=== PATIENT | female | born 1955 | race Caucasian/White ===

== ENCOUNTER → 2023-05-09 09:01 | Outpatient (REF) | payer MEDICARE, OTHER, SELFPAY ==
[2023-05-09 09:58] LABS: ALT (SGPT) 40 U/L (0-35); AST (SGOT) 32 U/L (14-36); Albumin 3.9 g/dl (3.5-5.0); Alkaline Phosphatase 78 U/L (38-126); Blood Urea Nitrogen 14 mg/dl (7-17); Carbon Dioxide 28 mmol/L (22-30); Chloride 106 mmol/L (98-107); Glucose 97 mg/dl (70-99); Potassium 4.4 mmol/L (3.5-5.1); Sodium 137 mmol/L (135-145); Total Bilirubin 0.2 mg/dl (0.2-1.3); Total Protein 6.6 g/dl (6.3-8.2); eGFR > 60.00
== END ==
LOC: REG 09:01
PROVIDERS: ATTENDING PHYSICIAN Nurse Practitioner
DX: R14.0 Abdominal distension (gaseous) (principal)
CPT/HCPCS: 36415; 80053

== ENCOUNTER → 2023-05-11 08:42 | Outpatient (REF) | payer MEDICARE, OTHER, SELFPAY | LOC: HWRAD 08:42 | PROVIDERS: ATTENDING PHYSICIAN Nurse Practitioner | DX: R14.0 Abdominal distension (gaseous) (principal) | CPT/HCPCS: 74177; Q9967 ==

== ENCOUNTER → 2023-06-13 11:43 | Outpatient (REF) | payer MEDICARE, OTHER, SELFPAY | LOC: RAD 11:43 | PROVIDERS: ATTENDING PHYSICIAN Nurse Practitioner | DX: U09.9 Post COVID-19 condition, unspecified (principal) | CPT/HCPCS: 71046 ==

== ENCOUNTER → 2023-06-22 13:49 | Outpatient (REF) | payer MEDICARE, OTHER, SELFPAY | LOC: RCS 13:49 | PROVIDERS: ATTENDING PHYSICIAN Internal Medicine Cardiovascular Disease; FAMILY PHYSICIAN Internal Medicine | DX: R07.89 Other chest pain (principal) | CPT/HCPCS: 93017; 93350 ==

== ENCOUNTER → 2023-06-28 14:17 | Outpatient (REF) | payer MEDICARE, OTHER, SELFPAY | LOC: RCS 14:17 | PROVIDERS: ATTENDING PHYSICIAN Internal Medicine Cardiovascular Disease; FAMILY PHYSICIAN Internal Medicine | DX: J43.9 Emphysema, unspecified (principal); I10 Essential (primary) hypertension; R07.89 Other chest pain; I25.10 Atherosclerotic heart disease of native coronary artery without angina pectoris | CPT/HCPCS: 93306 ==

== ENCOUNTER 2023-07-04 06:15 | Day surgery (SDC) | payer MEDICARE, OTHER, SELFPAY ==
--- NOTE | 2023-07-01 09:49 | HPS.HSE ---
Family Physician
-
Family Physician: INTERVIEWE UNKNOWN - PT NOT
Chief Complaint
-
Abnormal stress echocardiogram. Chest pain.
History of Present Illness
The patient is a 68 year old female presenting today for recent chest pain. The patient reports several episodes of chest discomfort which she describes as 'someone sitting on my chest' while talking with her sister. Her most recent
episode was 06/30/2023. She does not recall these conversations being particularly stressful. She does note shortness of breath and increased fatigue with these episodes. She states that her episodes are becoming more frequent and are progressively
worsening. She does have numerous risk factors for obstructive coronary artery disease, which include a strong family history of early onset cardiovascular disease, the presence of a calcified, ectatic infrarenal abdominal aorta, and a history of
prior tobacco abuse with severe hyperlipidemia. A stress echocardiogram was ordered on 06/22/2023 and revealed inferoseptal base to mid ventricle and possibly inferior (RCA territory) wall motion abnormalities at peak stress with a below average
exercise tolerance. Given this, she will undergo a left cardiac catheterization for further chest pain evaluation. She denies any current complaints today such as shortness of breath at rest, palpitations, nausea, vomiting, diarrhea,
lightheadedness, dizziness, cough, sore throat, or fever.
Medical History
Past Medical History
Past Medical History: Reports Other
Additional Past Medical History:
1. Chest pain with abnormal stress echocardiogram.
2. Hypertension.
3. Hyperlipidemia.
4. Calcified, ectatic infrarenal abdominal aorta.
5. Abdominal aortic aneurysm.
6. Right upper lobe pulmonary nodule.
7. Emphysema.
8. Obstructive sleep apnea, complaint with dental appliance.
9. Chronic gastritis
10. Hiatal hernia.
11. Colon polyps.
12. Diverticulosis.
13. Irritable bowel syndrome.
14. Nephrolithiasis, non-obstructive.
15. Hepatic steatosis.
16. Isolated seizure, 2016, possibly due to severe dehydration.
17. Multilevel degenerative disc disease.
18. Lumbar stenosis.
19. Rheumatoid arthritis.
20. Basal cell carcinoma, status post excision.
21. Chronic anemia.
22. Osteopenia.
23. Anxiety.
24. Depression.
25. Recurrent COVID-19 infection, last 06/01/2023, with residual cough.
26. Mild hyponatremia.
27. History of tobacco abuse.
Past Surgical History: Reports Other
Additional Past Surgical History:
1. .
2. Hysteroscopy and D&C.
3. Tonsillectomy.
4. Colonoscopy x2.
5. Endoscopy x2.
Social History
Tobacco: Former Smoker (Former 2 pack per day cigarette smoker who stopped tobacco altogether in 2011. )
Alcohol: None
Living: Alone (in a 1 story home.)
Family History
Family History: Not pertinent
Allergies / Home Medications
Allergy/Medication List:
Home medications:
1. Albuterol sulfate 1 puff inhaled every 4 hours as needed.
2. Amlodipine 5 mg p.o. daily.
3. Aspirin 81 mg p.o. daily.
4. Atorvastatin 40 mg p.o. at bedtime.
5. Carvedilol 6.25 mg p.o. at bedtime.
6. Atrovent 2 sprays intranasal daily as needed.
7. Prednisone 1 mg p.o. daily.
8. Rinvoq 15 mg p.o. daily - on hold per shovel logger at of 06/29/2023.
9. Omeprazole 20 mg p.o. daily as needed.
10. Famotidine 20 mg p.o. twice a day.
Allergies: No known allergies.
Review of Systems
-
A 12 point ROS was completed and negative except as noted: Yes
Physical Exam
Vital Signs
Blood pressure 135/72. Heart rate 80. Respirations 18. Pulse ox 98% on room air.
Height 5 feet, 6 inches. Weight 76.8 kg. BMI 27.3.
Physical Exam
General: Well Developed, Well Nourished and No Apparent Distress
HEENT: NormoCephalic, Moist mucous membranes, Atraumatic and PERRLA
Respiratory: Clear
Cardiac: Regular Rhythm
GI: Soft, Non Tender and Non Distended
Musculoskeletal: Normal Gait & Station
Skin: Warm and Dry
Neuro: AO x 3 and Nonfocal/grossly intact
Laboratory Results
-
DIAGNOSTIC STUDIES as of 07/01/2023: White blood cell count 7.0. Hemoglobin 10.7. Platelet count 355,000. Sodium 134. Potassium 4.1. BUN 12. Creatinine 0.9. Glucose 109. Calcium 9.5. AST 26. ALT 20. Albumin 4.1
EKG 07/01/2023: Normal sinus rhythm.
Echocardiogram 06/28/2023: Normal biventricular size and systolic function without regional wall motion abnormality. No significant valvular disease. Estimated PASP 31 mmHg and estimated RA 8 mmHg. No significant change since the prior study of
07/18/2020.
Stress echocardiogram 06/22/2023: Abnormal stress echocardiogram. Inferoseptal base to mid ventricle and possibly inferior (RCA territory) wall motion abnormalities at peak stress. Below average exercise tolerance, achieving 6.5 METS and 153 bpm of
max predicted heart rate. Moderate risk stress test.
Impression/Plan
-
IMPRESSION/PLAN:
1. Abnormal stress echocardiogram and chest pain: The patient is in need of a left cardiac catheterization with Dr. Nick Marina on 07/04/2023. The benefits and risks of the procedure have been explained to the patient. The patient understands these
risks and wishes to proceed. She is aware to continue her baby Aspirin daily up to and including the day of her procedure.
[2023-07-01 10:30] VITALS: BMI 27.3
[2023-07-04] VITALS (10 sets, daily range): BP systolic 107–127; BP diastolic 69–85; BMI 27.5
[2023-07-04] MEDS: NSS 231 ML IV (07:02)
--- NOTE | 2023-07-04 08:11 | ITS.CL.CATH ---
Director Of Group Sales - Catheterization
Cardiac Catheterization
Procedure Report:
CARDIAC CATHETERIZATION REPORT
Date of Procedure: 07/04/2023
Referring: Nick Marina D.O.
INDICATION: Chest pressure, multiple coronary artery disease risk factors, abnormal stress test.
PROCEDURE:
1. Left heart catheterization.
2. Coronary angiography.
ACCESS:
6 Jordanian right radial artery.
CATHETERS:
1. 5 Jordanian JR4.
2. 5 Jordanian JL 3.5.
HEMODYNAMIC DATA
Weight (kg): 77.1
AO (s/d/x, mmHg): 99/62/79
LV (s/x mmHg):
LEFT VENTRICULOGRAPHY: Not performed.
CORONARY ANGIOGRAPHY
Dominance: Right.
Left Main: Large size, bifurcating vessel. There is no coronary artery disease.
LAD: Normal size vessel giving rise to 2 diagonals. There are minor luminal irregularities. The distal LAD is severely tortuous.
Ramus: Congenitally absent.
Circumflex: Large size, nondominant vessel giving rise to 4 obtuse marginals before terminating as a small left posterolateral branch. There is no coronary artery disease. All of the obtuse marginals are severely tortuous.
RCA: Normal size, dominant vessel. There is a 20% lesion in the mid vessel. The distal RPDA is severely tortuous.
INTERVENTION(S)
None.
Closure Device: Vascular band.
Radiation (mGy): 264.93
DAP (cm2.Gy): 22.8740
Fluoroscopy time (minutes): 2.0
Sedation time (minutes): 29
CONCLUSIONS
1. Right dominant circulation with a 20% lesion in the mid RCA, luminal irregularities in the LAD and severe tortuosity of the distal vessels consistent with hypertensive heart disease.
2. Normal filling pressures (LVEDP = 11 mmHg at 77.1 kg).
RECOMMENDATIONS:
1. Expectant management after cardiac catheterization via right radial approach.
2. Limited weight bearing on the right wrist for one week.
3. Continue primary prevention given her numerous risk factors.
4. Smoking cessation recommended.
5. Outpatient referral for pulmonary function testing.
6. Start pantoprazole 40 mg daily for possible GERD/esophageal spasm.
Copy to: Najma Buckner M.D.
Nick Marina DO, FACC, FACP
--- NOTE | 2023-07-04 08:39 | PTCARENOTE ---
@ 0839 patient had 12 beat run of VTach, which broke on its own without intervention. Patient stated she felt ' fluttering ' in her chest which was uncomfortable. RN notified Dr. Nick Marina and Halle MIDDLETON. STAT Labs were ordered/drawn. Will
continue to monitor and notify MD of any changes.
[2023-07-04 09:43] LABS: Blood Urea Nitrogen 13 mg/dl (7-17); Calcium 9.2 mg/dl (8.4-10.2); Carbon Dioxide 21 mmol/L (22-30); Chloride 107 mmol/L (98-107); Estimated Creatinine Clearance 82 ml/min; Glucose 162 mg/dl (70-99); Phosphorus 3.7 mg/dl (2.5-4.5); Potassium 3.9 mmol/L (3.5-5.1); Sodium 136 mmol/L (135-145); eGFR > 60.00
== END 2023-07-04 11:30 | disposition home or self-care (01) ==
LOC: CATH 06:15
PROVIDERS: Nurse Practitioner; ATTENDING PHYSICIAN Internal Medicine Cardiovascular Disease; FAMILY PHYSICIAN Internal Medicine
DX: I25.10 Atherosclerotic heart disease of native coronary artery without angina pectoris (principal); R07.9 Chest pain, unspecified; I10 Essential (primary) hypertension; E78.5 Hyperlipidemia, unspecified; I71.40 Abdominal aortic aneurysm, without rupture, unspecified; G47.33 Obstructive sleep apnea (adult) (pediatric); J43.9 Emphysema, unspecified; K58.9 Irritable bowel syndrome, unspecified; M06.9 Rheumatoid arthritis, unspecified; Z87.891 Personal history of nicotine dependence; Z85.828 Personal history of other malignant neoplasm of skin; Z79.82 Long term (current) use of aspirin
CPT/HCPCS: 80048; 83735; 84100; 93458; C1894; Q9967

== ENCOUNTER → 2023-11-10 13:06 | Outpatient (REF) | payer MEDICARE, OTHER, SELFPAY | LOC: WDC 13:06 | PROVIDERS: ATTENDING PHYSICIAN Obstetrics & Gynecology; FAMILY PHYSICIAN Internal Medicine | DX: Z12.31 Encounter for screening mammogram for malignant neoplasm of breast (principal) | CPT/HCPCS: 77063; 77067 ==

== ENCOUNTER → 2024-01-02 09:50 | Outpatient (REF) | payer MEDICARE, OTHER, SELFPAY | LOC: HWRAD 09:50 | PROVIDERS: ATTENDING PHYSICIAN Internal Medicine Critical Care Medicine; FAMILY PHYSICIAN Internal Medicine | DX: Z87.891 Personal history of nicotine dependence (principal) | CPT/HCPCS: 71271 ==

== ENCOUNTER 2024-01-16 06:22 | Day surgery (SDC) | payer MEDICARE, OTHER, SELFPAY ==
[2024-01-12 12:10] VITALS: BMI 26.7
[2024-01-16] VITALS (8 sets, daily range): BP systolic 113–145; BP diastolic 71–97; BMI 26.7; BMI 29.8
== END 2024-01-16 10:55 | disposition home or self-care (01) ==
LOC: SDS 06:22
PROVIDERS: ATTENDING PHYSICIAN Internal Medicine Critical Care Medicine
DX: C34.11 Malignant neoplasm of upper lobe, right bronchus or lung (principal); J98.11 Atelectasis; R91.1 Solitary pulmonary nodule; J43.9 Emphysema, unspecified; R94.2 Abnormal results of pulmonary function studies; R06.09 Other forms of dyspnea; Z87.891 Personal history of nicotine dependence
CPT/HCPCS: 31629; 31628; 31624; 31623; 31627; 31652; 31654; 88172; 88173; 88305; 71045; 76000; 87015; 87070; 87077; 87102; 87116; 87185; 87205; 88112; 88333; 88334; 88341; 88342; 94640; C1887

== ENCOUNTER 2024-02-15 07:28 | Inpatient (IN) | payer MEDICARE, OTHER, SELFPAY ==
[2024-02-09 11:57] VITALS: BMI 28.1
[2024-02-09 12:54] LABS: % Basophils 0.2 % (0-2); % Eosinophils 1.7 % (0-6); % Immature Granulocytes 0.6 % (0-0.5); % Lymphocytes 15.7 % (20.5-51.1); % Monocytes 7.8 % (1.7-9.3); Absolute Eosinophils 0.2 10^3/uL (0-0.7); Absolute Immature Granulocytes 0.1 10^3/uL (0-0.05); Absolute Lymphocytes 1.5 10^3/uL (1.2-3.4); Absolute Monocytes 0.7 10^3/uL (0.1-0.6); Absolute Neutrophils 6.8 10^3/uL (1.4-6.5); Hemoglobin 11.6 g/dL (12.0-16.0); Mean Corp Hgb Conc. 33.1 g/dL (33.0-37.0); Mean Corpuscular Hgb 32.8 pg (27.0-31.0); Mean Corpuscular Volume 98.9 fL (81.0-99.0); Mean Platelet Volume 10.1 fL (7.4-10.4); Nucleated Red Blood Cells % 0 %; Platelet Count 370 10^3/uL (130-400); Red Blood Cell Count 3.54 10^6/uL (4.20-5.40); White Blood Cell Count 9.2 10^3/uL (4.8-10.8)
[2024-02-09 12:55] LABS: Urine Albumin Negative (Neg - Trace); Urine Bilirubin Negative (Negative); Urine Character Clear (Clear); Urine Color Yellow; Urine Glucose Negative (Negative); Urine Ketone Negative (Negative); Urine Leukocyte Negative (Negative); Urine Nitrite Negative (Negative); Urine Occult Blood Negative (Negative); Urine Urobilinogen Negative (Neg - 1+)
[2024-02-09 13:05] LABS: INR 0.89; PT 12.5 Sec (11.4-14.6)
[2024-02-09 13:37] LABS: ALT (SGPT) 24 U/L (0-35); AST (SGOT) 26 U/L (14-36); Albumin 4.1 g/dl (3.5-5.0); Alkaline Phosphatase 60 U/L (38-126); Blood Urea Nitrogen 18 mg/dl (7-17); Calcium 8.8 mg/dl (8.4-10.2); Carbon Dioxide 26 mmol/L (22-30); Chloride 100 mmol/L (98-107); Direct Bilirubin 0.1 mg/dl (0.0-0.4); Estimated Creatinine Clearance 57 ml/min; Glucose 86 mg/dl (70-99); Potassium 3.9 mmol/L (3.5-5.1); Sodium 134 mmol/L (135-145); Total Bilirubin 0.4 mg/dl (0.2-1.3); Total Protein 6.9 g/dl (6.3-8.2); eGFR > 60.00
[2024-02-09 14:23] LABS: Glycohemoglobin (HgbA1c) 5.7 % (4.0-5.6)
--- NOTE | 2024-02-09 15:14 | CM ---
spoke to pt in PAT's we discussed Lung preop, she is prev indep, lives alone in a 1 story home with 3 steps to enter. she has the lung book , soap and instructions. she is agreeable to a f/u appt with ct transtional care nurse. cm role explained
and all questions answered.
[2024-02-15] VITALS (18 sets, daily range): BP systolic 112–148; BP diastolic 57–109; BMI 26.8
--- NOTE | 2024-02-15 09:26 | PTCARENOTE ---
Pt arrived to CVICU at 0730. Pt confirmed showering with surgical wash prior to admission. Pt clipped and prepped. Admission questions completed. Height, weight, and vitals obtained. Dr. Houston to bedside to monica right side. Pt currently resting in
bed with call lopez within reach awaiting OR.
[2024-02-15 10:57] LABS: Urine Albumin Trace (Neg - Trace); Urine Bilirubin Negative (Negative); Urine Character Clear (Clear); Urine Color Yellow; Urine Glucose Negative (Negative); Urine Ketone 2+ (Negative); Urine Leukocyte Negative (Negative); Urine Nitrite Negative (Negative); Urine Occult Blood 2+ (Negative); Urine Urobilinogen Negative (Neg - 1+)
[2024-02-15 11:19] LABS: Urine Mucus Many
[2024-02-15 11:24] LABS: Urine Amorphous Seen; Urine Urothelial Cell 16-20 /LPF (FEW)
[2024-02-15 11:27] LABS: Urine Granular Cast 0-2 /LPF (0); Urine Hyaline Cast 0-2 /LPF (0-2)
[2024-02-15 11:28] LABS: Urine Red Blood Cell 0-2 /HPF (0-2); Urine White Cell 0-2 /HPF (0-5)
--- NOTE | 2024-02-15 12:50 | CM ---
Chart reviewed. Patient is in the OR today. Patient is independent of ADLS, lives alone in a 1 STH, 3 INGA, 0 DME. Plan is for the patient to return home. CM to follow
--- NOTE | 2024-02-15 14:44 | W.PN.CT.SURG ---
CT Surgery Operative Note
-
THORACIC SURGERY OPERATIVE REPORT
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
Postoperative Diagnosis: Same
Procedure(s) Performed:
1. Robotic assisted thoracic surgery [RATS] right upper lobe extended wedge resection
2. Radical Lymph Node Dissection
3. Regional Nerve Block by Anesthesia
Date of Surgery: 02/15/24
Comorbidities:
1. RUL Lung Cancer
2. Tobacco Abuse
3. HTN
4. HLD
5. Anxiety/Depression
6. HPV
7. COPD/Emphysema
8. COVID 19 Infection
Attending Surgeon: Oumar Houston MD, MS
Assistants: Brandi Escalante PA-C (present and necessary to pharmacy affairs assistant, exchanging robotic instruments, retraction, suction, exposure, suture management, and wound closure under my direction)
Anesthesiology: Usman Huff MD and Grecia Jimenez CRNA
Scrub and Circulating RNs: Carson Hamilton RN, Adelina Baxter RN
Anesthesia: Dual Lumen GETA
EBL: 100 cc
Products: None
Indication(s) for Procedures: This is a 68-year-old female who was recently discovered to have a right upper lobe nodule. Follow-up biopsy does not demonstrate adenocarcinoma. EBUS revealed no lymphadenopathy. Multiple lymph nodes were biopsied.
Follow-up PET/CT redemonstrated the nodule with possible postbiopsy inflammation of the paratracheal lymph nodes. She is referred to my office for consideration of surgical resection.
Findings: There were no obvious intrathoracic metachronous lesions. She had severe pulmonary disease with emphysematous changes of all 3 right-sided lobes. She also had scattered adhesions to the chest wall which were taken down with bipolar
cautery. She had poorly developed fissures between the right upper and right lower lobes. Tissue was extremely friable. Nodules in the periphery of the lung tissue and I was able to obtain a good margin for stapling. At approximately 1.5 cm
clean margin was taken from the nodule and sent off for pathological assessment which was confirmed. There was an abnormal appearing lymph node in station 7 which was sent off for pathological assessment which came back as negative. I did
encounter some bleeding from a branch of intercostal vessel towards the apex this was tamponade at with good hemostatic effect.
Specimen(s):
Station 10, x 2 nodes
Station 4, x 5 nodes
Station 2, x 1 nodes
Station 7, x 3 nodes
RUL Extended Wedge
Description of Procedure: The patient was taken to the operating room. Induction via general anesthesia with endotracheal intubation was performed and peripheral venous access and arterial monitoring were inserted. Their identity and procedure to be
performed were verified and they were positioned with the right side up on the operating table. The patient was then prepped and draped in a sterile fashion. A preoperative time-out was performed with all members of the team present. A Veress
needle was used to insufflate the chest after isolating the lung. An 8 mm port was placed in the midaxillary line at approximately the eighth intercostal space and confirmed to be intrathoracic without significant pulmonary injury. The chest was
surveyed for any evidence of metastatic disease. Patient tolerate insufflation without complication. 2 additional 12 mm trocars were placed on either side under camera guidance and a third 8 mm trocar was placed along the back. A 12 mm client services assistant
port was placed in the 11th intercostal space above the insertion of the diaphragm. An intercostal nerve block was performed at intercostal spaces 5 through 8.
The thoracic cavity was inspected for evidence of metastatic disease. None was observed. We started with mobilization of the inferior pulmonary ligament. We worked our way clockwise dissecting out the hilum and harvest any lymph nodes identified.
She had scattered adhesions from the lung to the chest wall which were taken with bipolar. I encountered a large aberrant vascular branch toward the apex which bled after dissecting through this adhesion and resolved with tamponade and time. She had
poorly developed fissures which were developed as best as possible with bipolar cautery. With positive pressure of the chest, he became hypotensive and so pressures on the airseal were dropped to <5mmHg. I found the nodule in the periphery of the
lung in the RUL in accordance to the CT scans. I felt there was a good margin of tissue and so an extended wedge was performed. This was sent to pathology for assessment of Margin. We had 1.5cm of clean tissue there. CoSeal was used to reinforce the
staple lines and hilum as well as the apex. After confirming hemostasis, the lung was fully inflated and all ports were removed. Incisions were closed in 3 layers including the fascia, dermal, and epidermis. Additional local anesthesia was
injected into all incision sites. The skin wound was cleansed and sealed with Dermabond glue.
All instrument, sponge, and needle counts were confirmed to be correct x 2 at the end of the operation. The patient was transferred to the cardiac intensive care unit extubated in critical but stable condition.
I, Dr. Oumar Houston, was present, scrubbed for, and performed all critical elements of this procedure.
Oumar Houston MD, MS
Cardiothoracic Surgeon
[facility]
This operative dictation was created using the [email or web address] dictation system. Please excuse any grammatical, typographical, or 'sound alike' errors
[2024-02-15] MEDS: DILAUDID 0.5 MG IV (15:01)
[2024-02-15] MEDS: SENOKOT 8.6 MG PO ×2 (15:02→20:35)
[2024-02-15] MEDS: MIRALAX 17 GRAMS PO (15:02)
[2024-02-15] MEDS: TYLENOL 1000 MG PO ×2 (15:02→22:19)
[2024-02-15] MEDS: HEPARIN 5000 UNITS SC ×2 (15:02→20:35)
[2024-02-15] MEDS: ANCEF 10 IV ×2 (15:04)
--- NOTE | 2024-02-15 15:26 | PTCARENOTE ---
Pt received from PACU s/p VATS RU lobectomy. Pt aaox4, 3lNC, NSR, vss, lt radial Carly, RFA PIV x2, rt P CT to -20 suction, no gtts, pain management, DTV fried dced in OR @ 1300
[2024-02-15] MEDS: TORADOL 15 MG IV (15:41)
[2024-02-15] MEDS: NEURONTIN 100 MG PO ×2 (15:42→22:19)
[2024-02-15] MEDS: ROXICODONE 2.5 MG PO (17:31)
[2024-02-15] MEDS: FLEXERIL 5 MG PO (17:32)
[2024-02-15] MEDS: ANCEF 5 IV (17:32)
--- NOTE | 2024-02-15 20:00 | PTCARENOTE ---
assumed care of pt from previous RN. pt A&Ox4, resting in bed at time of assessment. SR on tele-monitor. POX 94-96% on [address] R pleural CT to -20cm wall suction, draining serosanguineous drainage. +[address] PA aware. abd s/n, +BS.
tolerating diet. pt voiding concentrated urine in BSC. all surgical sites stable, CDI. L radial a-line; leveled, zeroed, flushed. PIVx2 intact. see worklist for complete nursing assessment, interventions, VS, and I&Os.
[2024-02-16] VITALS (12 sets, daily range): BP systolic 123–162; BP diastolic 78–98; BMI 27.6
--- NOTE | 2024-02-16 | PTCARENOTE ---
assessment remains unchanged. VSS. CT drainage WNL.
[2024-02-16] MEDS: FLEXERIL 5 MG PO ×2 (02:23→11:47)
[2024-02-16] MEDS: TORADOL 15 MG IV ×3 (02:23→18:59)
[2024-02-16] MEDS: ANCEF 5 IV ×2 (02:23→11:07)
[2024-02-16 02:50] LABS: Hematocrit 30.9 % (37.0-47.0); Hemoglobin 10.5 g/dL (12.0-16.0); Mean Corpuscular Hgb 32.5 pg (27.0-31.0); Mean Corpuscular Volume 95.7 fL (81.0-99.0); Mean Platelet Volume 9.7 fL (7.4-10.4); Platelet Count 316 10^3/uL (130-400); Red Blood Cell Count 3.23 10^6/uL (4.20-5.40); Red Cell Dist. Width 13.1 % (11.5-14.5); White Blood Cell Count 9.3 10^3/uL (4.8-10.8)
[2024-02-16 03:03] LABS: Blood Urea Nitrogen 12 mg/dl (7-17); Calcium 8.7 mg/dl (8.4-10.2); Carbon Dioxide 21 mmol/L (22-30); Chloride 97 mmol/L (98-107); Estimated Creatinine Clearance 73 ml/min; Glucose 166 mg/dl (70-99); Magnesium 2.3 mg/dl (1.6-2.3); Potassium 4.4 mmol/L (3.5-5.1); Sodium 131 mmol/L (135-145); eGFR > 60.00
--- NOTE | 2024-02-16 03:30 | PTCARENOTE ---
no acute changes. pain management, see MAR. VSS.
[2024-02-16] MEDS: DILAUDID 0.25 MG IV ×2 (04:04→11:24)
--- NOTE | 2024-02-16 05:33 | W.PN.CT ---
Today's Communication / Plan
-
-pod #1
-no issues overnight, no complaints
-R CT with intermittent +1 air leak, on -20 sxn, put out 40/60 in 24 hrs
-follow daily CXR
-sq Heparin for DVT prophylaxis
-follow pathology
-encourage IS, OOB
Assessment / Plan
-
- Right upper lobe adenocarcinoma- s/p Robotic assisted thoracic surgery [RATS] right upper lobe extended wedge resection; Radical Lymph Node Dissection by Dr. Houston on 02/15/24, pod #1
- There were no obvious intrathoracic metachronous lesions
- Severe pulmonary disease with emphysematous changes of all 3 right-sided lobes and scattered adhesions to the chest wall
- RUL Lung Cancer
- Tobacco Abuse
- HTN
- HLD
- Anxiety/Depression
- HPV
- COPD/Emphysema
- COVID 19 Infection
- Preop anemia - Hg 10s-11s
- Acute postop atelectasis
Discussed patient care with: Nursing and Care Team
Subjective
-
Date of Service: February 16, 2024
Objective Data
-
PT 12.5 Sec (11.4-14.6) 02/09/24 12:07
INR 0.89 02/09/24 12:07
APTT 27.0 Sec (23.4-35.0) 02/09/24 12:07
Vital Signs
Vital Signs
Temp Pulse Resp BP Pulse Ox
97.8 F 68 14 123/78 96
02/16/24 00:00 02/16/24 01:00 02/16/24 00:00 02/16/24 00:00 02/16/24 01:00
CT Intake/Output/Weight
02/15/24 02/15/24 02/16/24
06:59 18:59 06:59
Intake Total 610 / 610
Output Total 199 / 220
Balance 589 / 390 -199 / 390
SaO2: 96
Physical Exam
-
General: Awake and AOx3
Cardiovascular: Regular rate & rhythm, No Murmurs and Rub
Respiratory: Decreased Breath Sounds (crackles on R, no wheeze, no subq emphysema)
Incision: Clean, Dry and Dressing Intact
Extremities: No Edema
Abdomen: soft, nontender, nondistended
Data Reviewed
-
Lab Results: Results Reviewed
Medications: Active Meds Reviewed
Chest X-Ray: Report Reviewed and Image Reviewed
ECG: Report Reviewed and Image Reviewed
[2024-02-16] MEDS: TYLENOL 1000 MG PO ×3 (06:28→22:13)
--- NOTE | 2024-02-16 07:35 | W.PN.ANS.POP ---
Anesthesia Post Operative
- Anesthesia Post Op Note
Vital Signs Stable-See Nursing Note: Yes
Airway Patent: Yes
Adequate Pain Control: Yes
Change in Mental Status: No
Current Postoperative Nausea & Vomiting: No
Anesthesia Complications: No
General Anesthetic Recall: No
Unplanned Admission: No
Post Op Hydration Adequate: Yes
[2024-02-16] MEDS: MIRALAX 17 GRAMS PO (08:32)
[2024-02-16] MEDS: NEURONTIN 100 MG PO ×3 (08:32→22:13)
[2024-02-16] MEDS: SENOKOT 8.6 MG PO ×2 (08:33→19:49)
[2024-02-16] MEDS: LIDOCAINE 4% PATCH 1 PATCH TOPICAL (08:33)
[2024-02-16] MEDS: HEPARIN 5000 UNITS SC ×2 (08:33→19:49)
--- NOTE | 2024-02-16 09:30 | PTCARENOTE ---
assumed care of pt from previous shift RN, sinus rhythm on tele, VSS. POX 99% on 2L NC, weaned to RA. Coughing and deep breathing encouraged. Right side CT placed to H20 seal by Dr. Houston. +bs, tolerating PO intake. Voids spontaneously. PIV flushes
easily. Surgical sites stable. Plan of care reviewed w the pt and questions encouraged.
--- NOTE | 2024-02-16 11:35 | PTCARENOTE ---
repeat CXR on H20 seal reveals pneumo. CT placed back on suction by CT PA. Pt w increase in pain w tube on suction. Pain medication administered as ordered.
--- NOTE | 2024-02-16 11:54 | PTCARENOTE ---
pt still w c/o pain. CT suction decreased to [address] IMKA. Pox is 98% on 2L NC. Flexeril administered as ordered. Will monitor.
[2024-02-16] MEDS: ROXICODONE 2.5 MG PO ×2 (12:10→19:00)
--- NOTE | 2024-02-16 14:45 | CM ---
Chart reviewed. Patient is independent of ADLS, lives alone in a [address], [facility], has a SPC and RW if needed. Plan is for the patient to return home with CT Transitional RN. CM to follow
[2024-02-16] MEDS: DILAUDID 0.5 MG IV ×2 (15:34→19:00)
--- NOTE | 2024-02-16 16:14 | PTCARENOTE ---
pt continues to complain of right sided chest pain. Dr. Houston at bedside, repeat CXR obtained. Pt c/o burning at IV sites when flushed. 2 IVs removed and new IV line initiated. Pain medication administered as ordered.
--- NOTE | 2024-02-16 20:00 | PTCARENOTE ---
Assumed care of the patient at 1900. Patient in bed, son at bedside. AOx3, c/o 6-7/10 pain, no n/t. SR on the monitor, HR 70's, heart tones audible. Lungs diminished at the bases, on 2LNC for poor effort d/t pain, +pulses, no edema noted; R pleural
CT with -2 air leak and tidaling noted, no crepitus. Abdomen SNT, no nausea. Voiding spontaneously without difficulty. All surgical sites intact. PIV #22 in RAC. Pain medication provided, see MAR, updated on POC, in agreement, assessment of needs
ongoing, call lopez within reach.
[2024-02-17] VITALS (9 sets, daily range): BP systolic 122–163; BP diastolic 79–99; BMI 28.1
[2024-02-17] MEDS: DILAUDID 0.5 MG IV ×5 (03:00→21:16)
--- NOTE | 2024-02-17 04:00 | PTCARENOTE ---
Assessment unchanged. Patient asleep in bed, given pain medication for R chest discomfort. Subsequently sleeping.
[2024-02-17] MEDS: TYLENOL 1000 MG PO ×3 (06:09→22:15)
--- NOTE | 2024-02-17 06:55 | W.PN.CT ---
Today's Communication / Plan
-
-pod #2
-no issues overnight, no complaints
-R CT with intermittent +1 air leak, on -10 sxn, put out 50/100 in 24 hrs
-follow daily CXR
-sq Heparin for DVT prophylaxis
-follow pathology
-encourage IS, OOB
Assessment / Plan
-
- Right upper lobe adenocarcinoma- s/p Robotic assisted thoracic surgery [RATS] right upper lobe extended wedge resection; Radical Lymph Node Dissection by Dr. Houston on 02/15/24, pod #2
- There were no obvious intrathoracic metachronous lesions
- Severe pulmonary disease with emphysematous changes of all 3 right-sided lobes and scattered adhesions to the chest wall
- RUL Lung Cancer
- Tobacco Abuse
- HTN
- HLD
- Anxiety/Depression
- HPV
- COPD/Emphysema
- COVID 19 Infection
- Preop anemia - Hg 10s-11s
- Acute postop atelectasis
Discussed patient care with: Nursing and Care Team
Subjective
-
Date of Service: February 17, 2024
Objective Data
-
Lab Results
02/16/24 02:36
02/16/24 02:36
PT 12.5 Sec (11.4-14.6) 02/09/24 12:07
INR 0.89 02/09/24 12:07
APTT 27.0 Sec (23.4-35.0) 02/09/24 12:07
Vital Signs
Vital Signs
Temp Pulse Resp BP Pulse Ox
97.4 F 78 16 133/93 95
02/17/24 00:26 02/17/24 00:26 02/17/24 00:26 02/17/24 00:26 02/17/24 00:26
CT Intake/Output/Weight
02/16/24 02/16/24 02/17/24
06:59 18:59 06:59
Intake Total 100 / 100
Output Total 844 / 865 250 / 270 20 / 270
Balance -844 / -255 -150 / -170 -20 / -170
SaO2: 95
Physical Exam
-
General: Awake and AOx3
Cardiovascular: Regular rate & rhythm, No Murmurs and Rub
Respiratory: Decreased Breath Sounds (crackles on R, no wheeze, no subq emphysema)
Incision: Clean, Dry and Dressing Intact
Abdomen: soft, nontender, nondistended
Extremities: No Edema
Data Reviewed
-
Lab Results: Results Reviewed
Medications: Active Meds Reviewed
Chest X-Ray: Report Reviewed and Image Reviewed
ECG: Report Reviewed and Image Reviewed
[2024-02-17] MEDS: NEURONTIN 100 MG PO ×3 (08:37→22:14)
[2024-02-17] MEDS: HEPARIN 5000 UNITS SC ×2 (08:42→19:56)
[2024-02-17] MEDS: SENOKOT 8.6 MG PO ×2 (08:42→19:56)
[2024-02-17] MEDS: MIRALAX 17 GRAMS PO (08:42)
[2024-02-17] MEDS: LIDOCAINE 4% PATCH 1 PATCH TOPICAL (08:43)
[2024-02-17] MEDS: FLEXERIL 5 MG PO ×2 (08:52→18:23)
--- NOTE | 2024-02-17 08:57 | PTCARENOTE ---
Assumed care of patient at 0700. Pt is awake, alert, and oriented. Pt remains SR with 90's. BP 152/99 MAP 114. Pt remains on room air, pulse oximetry 93%. Pt with productive cough. Pt achieving 1200 with IS, continued use encouraged. Right lateral
chest tube in place now to water seal, no sign of air leak or crepitus. Pt tolerating PO diet. Voiding in bathroom. Right lateral incision approximated with surgical adhesive.
--- NOTE | 2024-02-17 10:58 | CM ---
Chart reviewed. Patient is independent of ADLS, lives alone in a 1 [address], 3 [place], has SPC and RW at home if needed. Patient's son is going to stay with the patient when she returns home. Plan is for the patient to return home with son and CT
Transitional RN. CM to follow
[2024-02-17] MEDS: DELTASONE 1 MG PO (11:33)
[2024-02-17] MEDS: ASPIR LOW (ENTERIC COATED) 81 MG PO (11:33)
[2024-02-17] MEDS: TOPROL XL 50 MG PO (12:45)
--- NOTE | 2024-02-17 12:45 | PTCARENOTE ---
Chest tube placed to water seal this morning around 0830, chest x-ray done. Chest tube now clamped. Pt remains SR/ST HR 97-102. BP 158/87 MAP 107. Toprol XL 50mg given.
[2024-02-17] MEDS: ROXICODONE 2.5 MG PO (14:48)
--- NOTE | 2024-02-17 16:15 | PTCARENOTE ---
Right pleural chest tube back on suction. Chest tube dressing changed. Pt remains SR with HR 90's. BP 148/94 MAP 110. Pulse oximetry 89% on room air, now on 2L nasal cannula pulse oximetry 93%. Pt continues to utilize IS.
[2024-02-17] MEDS: MILK OF MAGNESIA 30 ML PO (18:26)
--- NOTE | 2024-02-17 20:00 | PTCARENOTE ---
Report received from DANIEL Alvarez. Walking rounds done. Pt awake, alert, oriented x 4 and sitting in chair. Speech clear. Moves all extremities equally x 4. Pt on 2L/NC. Sats 91-93%. R pleural CT to - 10 cm suction. Draining serous fluid. Pt denies
dyspnea. Does c/o intermittent sharp, stabbing pains depending on position to R anterior chest. Currently 3/10 after Dilaudid 0.5 mg and flexeril 5 mg given on day shift at ~ 1823. BBS present. R side with rales posteriorly. Diminished bibasilarly.
CDB and IS encouraged. IS Peak [address]-SR, rate 99-100's. Audible heart tones. BP 135 systolic. For pulse and wound assessments, see flowsheets. Belly soft, nontender. Normoactive bs x 4. Stool softener given as scheduled. Pt without BM
yet. Has been attempting BM today. Pt has yet to void on shift. Voided ample amount of urine on day shift. Ongoing plan of care. Son at bedside.
--- NOTE | 2024-02-17 21:59 | PTCARENOTE ---
Pt helped to BR to void 325 mls clear, yellow urine and attempt BM. No BM, yet passing flatus. Helped back to bed. Dilaudid 0.5 mg IV given for severe R sided, sharp stabbing CP. See MAR. CHG bath done, face washed, Gown and leads changed.
[2024-02-17] MEDS: TOPROL XL PO (22:15)
[2024-02-17] MEDS: NORVASC 5 MG PO (22:15)
[2024-02-18] VITALS (7 sets, daily range): BP systolic 98–144; BP diastolic 69–83; BMI 28.4
--- NOTE | 2024-02-18 02:30 | PTCARENOTE ---
VS done. Pt without c/o pain. Remains in SR. O2 Sats on 2L/NC are 92-93%. Pt attempting to go back to sleep.
[2024-02-18] MEDS: DILAUDID 0.5 MG IV (03:41)
[2024-02-18] MEDS: FLEXERIL 5 MG PO ×2 (04:01→13:18)
--- NOTE | 2024-02-18 04:05 | PTCARENOTE ---
Helped to BR to have moderate sized liquid/loose brown BM and void. Helped back to bed. O2 noted to be 90-92 on 2 L. Increased to 3 L. Dilaudid 0.5 mg IV for c/o severe R lateral and anterior CP. Flexeril 5 mg po given for pain. See MAR. Sats on
3L/NC are 93-94%. No c/o dyspnea.
[2024-02-18 04:06] LABS: Hematocrit 27.2 % (37.0-47.0); Hemoglobin 9.6 g/dL (12.0-16.0); Mean Corp Hgb Conc. 35.3 g/dL (33.0-37.0); Mean Corpuscular Volume 93.5 fL (81.0-99.0); Mean Platelet Volume 9.7 fL (7.4-10.4); Platelet Count 303 10^3/uL (130-400); Red Blood Cell Count 2.91 10^6/uL (4.20-5.40); Red Cell Dist. Width 13.2 % (11.5-14.5); White Blood Cell Count 6.7 10^3/uL (4.8-10.8)
[2024-02-18 04:33] LABS: Blood Urea Nitrogen 18 mg/dl (7-17); Calcium 8.3 mg/dl (8.4-10.2); Carbon Dioxide 24 mmol/L (22-30); Chloride 90 mmol/L (98-107); Estimated Creatinine Clearance 73 ml/min; Glucose 98 mg/dl (70-99); Potassium 4.5 mmol/L (3.5-5.1); Sodium 122 mmol/L (135-145); eGFR > 60.00
[2024-02-18] MEDS: LASIX 40 MG IV (05:38)
[2024-02-18] MEDS: KCL 20 MEQ PO (05:38)
[2024-02-18] MEDS: TYLENOL 1000 MG PO ×3 (05:41→23:25)
--- NOTE | 2024-02-18 06:00 | PTCARENOTE ---
Lasix 40 mg IV and KCL 20 meq po given per order. Ed, PA aware of am labs: Na is 122. Pt voided 500 mls clear, yellow urine. Pt up to recliner chair this am.
--- NOTE | 2024-02-18 06:38 | W.PN.CT ---
Today's Communication / Plan
-
-No major issues overnight
-Did not tolerate clamped chest tube yesterday 02/16, ptx with chest tube clamped
-Chest tube back on -10 cmh2o wall suction yesterday
-No air leak overnight. No ptx appreciated on cxr this AM
-Will consider chest tube to water seal today
-Will discuss with team
-Will give lasix for hyponatremia 122, wt up 8lbs from preop
-F/U pathology
Assessment / Plan
-
- Right upper lobe adenocarcinoma- s/p Robotic assisted thoracic surgery [RATS] right upper lobe extended wedge resection; Radical Lymph Node Dissection by Dr. Houston on 02/15/24, pod #3
- There were no obvious intrathoracic metachronous lesions
- Severe pulmonary disease with emphysematous changes of all 3 right-sided lobes and scattered adhesions to the chest wall
- RUL Lung Cancer
- Tobacco Abuse
- HTN
- HLD
- Anxiety/Depression
- HPV
- COPD/Emphysema
- COVID 19 Infection
- Preop anemia - Hg 10s-11s
- Acute postop atelectasis
- Acute postop hyponatremia, 122
Discussed patient care with: Cardiology, Nursing, Respiratory Therapy, Pharmacy and Care Team
Subjective
-
Date of Service: February 18, 2024
C/O mild incisional pain, otherwise feels well
Objective Data
-
Lab Results
02/18/24 03:57
02/18/24 03:57
PT 12.5 Sec (11.4-14.6) 02/09/24 12:07
INR 0.89 02/09/24 12:07
APTT 27.0 Sec (23.4-35.0) 02/09/24 12:07
Vital Signs
Vital Signs
Temp Pulse Resp BP Pulse Ox
98.7 F 90 15 130/83 93
02/18/24 05:40 02/18/24 05:40 02/18/24 05:40 02/18/24 05:40 02/18/24 05:40
CT Intake/Output/Weight
02/17/24 02/17/24 02/18/24
06:59 18:59 06:59
Intake Total 480 / 580 350 / 350
Output Total 50 / 300 1590 / 2470 880 / 2470
Balance 430 / 280 -1590 / -2120 -530 / -2120
SaO2: 93 (2L)
Physical Exam
-
General: Awake, Oriented and AOx3
Cardiovascular: Regular rate & rhythm, No Murmurs, No Rub and No Gallop
Respiratory: Decreased Breath Sounds
Incision: Clean, Dry, Intact and Dressing Intact
Extremities: Other (+trace edema)
Data Reviewed
-
Lab Results: Results Reviewed
Medications: Active Meds Reviewed
Chest X-Ray: Report Reviewed and Image Reviewed
ECG: Report Reviewed and Image Reviewed
[2024-02-18] MEDS: TYLENOL 650 MG PO (08:53)
[2024-02-18] MEDS: NEURONTIN 100 MG PO ×3 (08:53→20:48)
[2024-02-18] MEDS: DELTASONE 1 MG PO (08:53)
[2024-02-18] MEDS: ASPIR LOW (ENTERIC COATED) 81 MG PO (08:53)
[2024-02-18] MEDS: ROXICODONE 2.5 MG PO ×4 (08:53→23:28)
[2024-02-18] MEDS: HEPARIN 5000 UNITS SC ×2 (08:54→20:50)
[2024-02-18] MEDS: LIDOCAINE 4% PATCH 1 PATCH TOPICAL (08:57)
[2024-02-18] MEDS: SENOKOT PO ×2 (09:02→20:50)
[2024-02-18] MEDS: MIRALAX PO (09:03)
--- NOTE | 2024-02-18 10:31 | PTCARENOTE ---
assumed care of pt from previous shift RN, sinus rhythm on tele, VSS. + peripheral pulses, no edema. Lungs diminished, pox 92% on 2L NC, coughing and deep breathing encouraged. +bs, tolerating PO intake, voids spontaneously. CT placed to H20 seal by
CT PA. Pt medicated for pain. Plan of care reviewed and questions encouraged.
--- NOTE | 2024-02-18 13:30 | PTCARENOTE ---
pt assisted from chair to bed without incident. CT remains to H20 seal. pt medicated for pain.
--- NOTE | 2024-02-18 16:21 | PTCARENOTE ---
pt w temp 100.4. CT PA made aware.
[2024-02-18] MEDS: MOTRIN 400 MG PO ×2 (16:29→23:25)
--- NOTE | 2024-02-18 20:00 | PTCARENOTE ---
assumed care of patient @ 1900. received pt laying in bed, AOx3. VSS on 2L NC. NSR in 80s. Lungs clear, diminished satting mid 90s on 2L. R Plr CT to -10 cm water seal with serous drainage. intermittent air leak with coughing. +BS. voiding clear
yellow urine in bathroom. 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 PIV patent. pt medicated for pain. call lopez within reach .
[2024-02-18] MEDS: TOPROL XL 50 MG PO (20:48)
[2024-02-18] MEDS: NORVASC 5 MG PO (20:50)
[2024-02-18] MEDS: TYLENOL PO (22:46)
[2024-02-19] VITALS (9 sets, daily range): BP systolic 95–141; BP diastolic 63–81; BMI 27.7
--- NOTE | 2024-02-19 00:17 | PTCARENOTE ---
pt medicated for pain see mar. no other change in assessment, call lopez within reach .
--- NOTE | 2024-02-19 04:00 | PTCARENOTE ---
pt medicated for pain. labs drawn and sent. no change in assessment. call lopez within reach .
[2024-02-19] MEDS: ROXICODONE 2.5 MG PO ×3 (04:30→20:28)
[2024-02-19 05:21] LABS: Blood Urea Nitrogen 12 mg/dl (7-17); Calcium 8.5 mg/dl (8.4-10.2); Carbon Dioxide 26 mmol/L (22-30); Chloride 92 mmol/L (98-107); Estimated Creatinine Clearance 73 ml/min; Glucose 89 mg/dl (70-99); Magnesium 2.2 mg/dl (1.6-2.3); Potassium 4.6 mmol/L (3.5-5.1); Sodium 125 mmol/L (135-145); eGFR > 60.00
--- NOTE | 2024-02-19 05:24 | W.PN.CT ---
Today's Communication / Plan
-
-No major issues overnight
-Did not tolerate clamped chest tube 02/16, ptx with chest tube clamped
-Chest tube transitioned from suction to water seal yesterday 02/17
-Dontae air leak only with cough. No ptx appreciated on cxr this AM. F/U official report
-Will discuss clamping chest tube midday and possible d/c
-Cont. Lasix and fluid restriction for hyponatremia, improved from 122 to 125, wt was up 8lbs from preop yesterday, check wt today
-F/U pathology
-Home later today vs tomorrow
Assessment / Plan
-
- Right upper lobe adenocarcinoma- s/p Robotic assisted thoracic surgery [RATS] right upper lobe extended wedge resection; Radical Lymph Node Dissection by Dr. Houston on 02/15/24, pod #3
- There were no obvious intrathoracic metachronous lesions
- Severe pulmonary disease with emphysematous changes of all 3 right-sided lobes and scattered adhesions to the chest wall
- RUL Lung Cancer
- Tobacco Abuse
- HTN
- HLD
- Anxiety/Depression
- HPV
- COPD/Emphysema
- COVID 19 Infection
- Preop anemia - Hg 10s-11s
- Acute postop atelectasis
- Acute postop hyponatremia, 122
Discussed patient care with: Cardiology, Nursing, Respiratory Therapy, Pharmacy and Care Team
Subjective
-
Date of Service: February 19, 2024
c/o mild incisional pain, otherwise feels well
Objective Data
-
Lab Results
02/18/24 03:57
02/19/24 04:46
PT 12.5 Sec (11.4-14.6) 02/09/24 12:07
INR 0.89 02/09/24 12:07
APTT 27.0 Sec (23.4-35.0) 02/09/24 12:07
Vital Signs
Vital Signs
Temp Pulse Resp BP Pulse Ox
98.3 F 81 16 141/80 96
02/19/24 04:00 02/19/24 05:00 02/19/24 04:00 02/19/24 04:32 02/19/24 04:00
CT Intake/Output/Weight
02/18/24 02/18/24 02/19/24
06:59 18:59 06:59
Intake Total 350 / 350 480 / 480
Output Total 880 / 2505 555 / 1535 980 / 1535
Balance -530 / -2155 -555 / -1055 -500 / -1055
SaO2: 96 (RA)
Physical Exam
-
General: Awake, Oriented and AOx3
Cardiovascular: Regular rate & rhythm, No Murmurs, No Rub and No Gallop
Respiratory: Decreased Breath Sounds (on right, otherwise clear)
Incision: Clean, Dry, Intact and Dressing Intact
Extremities: No Edema
Data Reviewed
-
Lab Results: Results Reviewed
Medications: Active Meds Reviewed
Chest X-Ray: Report Reviewed and Image Reviewed
ECG: Report Reviewed and Image Reviewed
--- NOTE | 2024-02-19 06:11 | W.PN.CT ---
Today's Communication / Plan
-
-No major issues overnight
-Did not tolerate clamped chest tube 02/16, ptx with chest tube clamped
-Chest tube transitioned from suction to water seal yesterday 02/17
-Dontae air leak only with cough. No ptx appreciated on cxr this AM. F/U official report
-Will discuss clamping chest tube midday and possible d/c
-Cont. Lasix and fluid restriction for hyponatremia, improved from 122 to 125, wt was up 8lbs from preop yesterday, check wt today
-F/U pathology
-Home later today vs tomorrow
Assessment / Plan
-
- Right upper lobe adenocarcinoma- s/p Robotic assisted thoracic surgery [RATS] right upper lobe extended wedge resection; Radical Lymph Node Dissection by Dr. Houston on 02/15/24, pod #4
- There were no obvious intrathoracic metachronous lesions
- Severe pulmonary disease with emphysematous changes of all 3 right-sided lobes and scattered adhesions to the chest wall
- RUL Lung Cancer
- Tobacco Abuse
- HTN
- HLD
- Anxiety/Depression
- HPV
- COPD/Emphysema
- COVID 19 Infection
- Preop anemia - Hg 10s-11s
- Acute postop atelectasis
- Acute postop hyponatremia, 122
Discussed patient care with: Cardiology, Nursing, Respiratory Therapy, Pharmacy and Care Team
Subjective
-
Date of Service: February 19, 2024
Pt c/o mild chest tube site pain, otherwise feels well
Objective Data
-
Lab Results
02/18/24 03:57
02/19/24 04:46
PT 12.5 Sec (11.4-14.6) 02/09/24 12:07
INR 0.89 02/09/24 12:07
APTT 27.0 Sec (23.4-35.0) 02/09/24 12:07
Vital Signs
Vital Signs
Temp Pulse Resp BP Pulse Ox
98.3 F 81 16 141/80 96
02/19/24 04:00 02/19/24 05:00 02/19/24 04:00 02/19/24 04:32 02/19/24 04:00
CT Intake/Output/Weight
02/18/24 02/18/24 02/19/24
06:59 18:59 06:59
Intake Total 350 / 350 480 / 480
Output Total 880 / 2505 555 / 1535 980 / 1535
Balance -530 / -2155 -555 / -1055 -500 / -1055
SaO2: 96 (RA)
Physical Exam
-
General: Awake, Oriented and AOx3
Cardiovascular: Regular rate & rhythm, No Murmurs, No Rub and No Gallop
Respiratory: Decreased Breath Sounds
Incision: Clean, Dry, Intact and Dressing Intact
Extremities: No Edema
Data Reviewed
-
Lab Results: Results Reviewed
Medications: Active Meds Reviewed
Chest X-Ray: Report Reviewed and Image Reviewed
ECG: Report Reviewed and Image Reviewed
--- NOTE | 2024-02-19 08:45 | PTCARENOTE ---
Assumed care of patient. Walking rounds completed with previous RN. Pt assessed while she was sitting in the chair. pt alert and oriented x4. Rates right lateral chest/back pain 5/10-see MAR. Denies nausea. OSBORNE with equal strength throughout.
Ambulates with standby assist in the room. NSR on tele with rates in the 80s-90s. BP 116/77. Heart tones audible. Bilateral radial and DP pulses palpable. No edema noted. POX 94% on RA. Lungs diminished R>L. no cough noted. Right pleural chest tube
to water seal. Air leak only with cough. Draining serous fluid. IS encouraged-1000ml achieved. Abdomen soft, round, nontender. +BS. +BM yesterday. Voiding delisa urine in the toilet. Right lateral chest incision/puncture sites approximated and ASHVIN.
CT dressing CDI. Left AC PIV intact. See MAR for medication administration. See worklist for complete nursing assessment. Plan of care reviewed and patient in agreement.
[2024-02-19] MEDS: TYLENOL 1000 MG PO ×3 (08:59→22:08)
[2024-02-19] MEDS: LIDOCAINE 4% PATCH 1 PATCH TOPICAL (08:59)
[2024-02-19] MEDS: KCL 20 MEQ PO (08:59)
[2024-02-19] MEDS: HEPARIN 5000 UNITS SC ×2 (08:59→20:28)
[2024-02-19] MEDS: ASPIR LOW (ENTERIC COATED) 81 MG PO (08:59)
[2024-02-19] MEDS: DELTASONE 1 MG PO (08:59)
[2024-02-19] MEDS: LASIX 40 MG IV (08:59)
[2024-02-19] MEDS: MIRALAX PO (09:00)
[2024-02-19] MEDS: FLEXERIL 5 MG PO (09:00)
[2024-02-19] MEDS: SENOKOT PO ×2 (09:00→20:30)
[2024-02-19] MEDS: NEURONTIN 100 MG PO ×3 (09:00→22:08)
--- NOTE | 2024-02-19 11:16 | PTCARENOTE ---
Pt reassessed. NSR on tele with rates in the 90s. BP 95/63. POX 92% on RA. Right pleural chest tube clamped, due for CXR at 1230. Surgical sites stable. Pt denies chest pain. No other acute changes from previous assessment.
--- NOTE | 2024-02-19 14:00 | PTCARENOTE ---
Hemilich valve placed on right pleural chest tube by CT PA. Pt tolerated. All questions answered and education provided about chest tube. Pt assisted Out of bed to chair, son at bedside.
[2024-02-19] MEDS: MOTRIN 400 MG PO (14:18)
--- NOTE | 2024-02-19 15:30 | PTCARENOTE ---
Pt reassessed. NSR on tele with rates in the 90s. BP 115/76. POX 94% on RA. Surgical sites stable. Right pleural chest tube to hemilich valve. Pt medicated for pain. Pt sitting up in the chair.
--- NOTE | 2024-02-19 20:30 | PTCARENOTE ---
Assumed care of pt from dayshift RN. Walking rounds completed. Pt AAOx3. OSBORNE. SR on the tele monitor. HR 70-80s. BP stable. Palpable pulses throughout. No edema. Pt on RA. POX 93%. Right lung sounds decreased. Right pleural chest tube to hemilich
valve C/D/I and draining serous fluid. Drainage bag secure to pts right leg. Deep breathing and IS encouraged. Right lateral incisions intact w/ surgical adhesive and ASHVIN. Abdomen soft/nontender. +BS. Voiding w/o issue. Abdominal binder in place.
PIVx1 C/D/I. See worklist for full nursing assessment and interventions. See MAR for pain medication administration. Call lopez within reach.
[2024-02-19] MEDS: TOPROL XL 50 MG PO (22:08)
[2024-02-19] MEDS: NORVASC 5 MG PO (22:08)
[2024-02-20 00:04] VITALS: BP 130/80
--- NOTE | 2024-02-20 00:38 | PTCARENOTE ---
No acute changes in assessment. Pt is SR on the tele monitor. HR 70-80s. BP 130/80. Pt is 92% on RA. Right pleural chest tube to hemilich valve C/D/I and secure to pts right leg. Minimal drainage. All surgical sites stable. Abdominal binder in
place. Call lopez within reach.
[2024-02-20] MEDS: FLEXERIL 5 MG PO (02:00)
[2024-02-20 04:09] VITALS: BP 137/83
[2024-02-20 04:14] VITALS: BP 137/83; BMI 27.4
[2024-02-20] MEDS: ROXICODONE 2.5 MG PO (04:24)
--- NOTE | 2024-02-20 04:35 | PTCARENOTE ---
Pt c/o shortness of breath. Pt sat up in bed and 2 L O2 applied. POX currently 96-99%. Pt able to cough up phlegm and states her breathing is better. Remains SR on the tele monitor. HR 80s. BP 137/82. Right pleural chest tube to hemilich valve
intact and secured to pt R leg. Serosanguineous drainage is minimal. Abdominal binder in place. Labs drawn and sent. See MAR for pain medication administration. Call lopez within reach.
[2024-02-20 05:09] LABS: Blood Urea Nitrogen 15 mg/dl (7-17); Calcium 8.9 mg/dl (8.4-10.2); Carbon Dioxide 24 mmol/L (22-30); Chloride 95 mmol/L (98-107); Estimated Creatinine Clearance 57 ml/min; Glucose 90 mg/dl (70-99); Magnesium 2.2 mg/dl (1.6-2.3); Potassium 4.6 mmol/L (3.5-5.1); Sodium 128 mmol/L (135-145); eGFR > 60.00
--- NOTE | 2024-02-20 05:26 | W.PN.CT ---
Today's Communication / Plan
-
-No major issues overnight
-Did not tolerate clamped chest tube 02/16, ptx with chest tube clamped
-Chest tube clamped again yesterday 02/18, small right apical ptx post clamp, transitioned to Heimlich valve with resolution of ptx, but increased SQ emphysema
-Binder applied to chest for SQ emphysema
-Cannot appreciate a ptx on cxr this AM, SQ emphysema resolving, F/U official report
-D/C home with Heimlich valve
-Cont. Lasix and fluid restriction for hyponatremia, improved from 122 -> 125-> 128, wt was up 4lbs from preop yesterday
-F/U pathology
-Home today with Heimlich valve
Assessment / Plan
-
- Right upper lobe adenocarcinoma- s/p Robotic assisted thoracic surgery [RATS] right upper lobe extended wedge resection; Radical Lymph Node Dissection by Dr. Houston on 02/15/24, pod #5
- There were no obvious intrathoracic metachronous lesions
- Severe pulmonary disease with emphysematous changes of all 3 right-sided lobes and scattered adhesions to the chest wall
- RUL Lung Cancer
- Tobacco Abuse
- HTN
- HLD
- Anxiety/Depression
- HPV
- COPD/Emphysema
- COVID 19 Infection
- Preop anemia - Hg 10s-11s
- Acute postop atelectasis
- Acute postop hyponatremia, 122
Discussed patient care with: Nursing, Respiratory Therapy, Pharmacy and Care Team
Subjective
-
Date of Service: February 20, 2024
Pt c/o mild incisional pain, otherwise feels well
Objective Data
-
Lab Results
02/18/24 03:57
02/20/24 04:20
PT 12.5 Sec (11.4-14.6) 02/09/24 12:07
INR 0.89 02/09/24 12:07
APTT 27.0 Sec (23.4-35.0) 02/09/24 12:07
Vital Signs
Vital Signs
Temp Pulse Resp BP Pulse Ox
98.6 F 95 20 137/83 96
02/20/24 04:14 02/20/24 04:14 02/20/24 04:14 02/20/24 04:14 02/20/24 04:14
CT Intake/Output/Weight
02/19/24 02/19/24 02/20/24
06:59 18:59 06:59
Intake Total 480 / 480 240 / 240
Output Total 980 / 1535 1014
Balance -500 / -1055 -775 / -1775 -1000 / -1775
SaO2: 96 (RA)
Physical Exam
-
General: Awake, Oriented and AOx3
Cardiovascular: Regular rate & rhythm, No Murmurs and No Gallop
Respiratory: Decreased Breath Sounds (on right, otherwise clear )
Incision: Clean, Dry, Intact and Dressing Intact
Extremities: No Edema
Data Reviewed
-
Lab Results: Results Reviewed
Medications: Active Meds Reviewed
Chest X-Ray: Report Reviewed and Image Reviewed
ECG: Report Reviewed and Image Reviewed
[2024-02-20] MEDS: TYLENOL 1000 MG PO (06:42)
--- NOTE | 2024-02-20 07:53 | W.DCSUMMARY ---
Discharge Summary
Discharge Data
Date of Admission: 02/15/24
Date of Discharge: 02/20/24
Total time spent discharging patient (in min): 45
-
Pending Results: No
Hospital Course
Primary care physician:
Dr. Najma Buckner MD.
Outpatient correctional classification counselor:
Dr. Nick Marina DO.
Freelance Writer:
Dr. Sourav Trevino MD.
Inpatient consultants:
None
Procedures:
1. Robotic assisted thoracic surgery [RATS] right upper lobe extended wedge resection
2. Radical Lymph Node Dissection
3. Regional Nerve Block by Anesthesia
by Dr. Oumar Houston MD. on 02/15/24
Primary Diagnosis:
1. Right upper lobe adenocarcinoma right upper lobe adenocarcinoma
2. Right upper lobe lung cancer
3. Tobacco Abuse
4. Hypertension
5. Hyperlipidemia
6. Anxiety/Depression
7. Human papilloma virus
8. Chronic obstructive pulmonary disease/emphysema
9. COVID 19 Infection 02/2023
10. Obstructive sleep apnea
Secondary Diagnoses:
Same as the above.
HPI:
Patient is a 68-year-old female who was recently discovered to have a right upper lobe nodule. Follow-up biopsy did not demonstrate adenocarcinoma. Endobronchial ultrasound bronchoscopy revealed no lymphadenopathy. Multiple lymph nodes were
biopsied. Follow-up PET/CT scan redemonstrated the nodule with possible postbiopsy inflammation of the paratracheal lymph nodes. She was referred to the cardiothoracic surgery office for consideration of surgical resection. She was seen as an
outpatient in consultation by attending physician and deemed an appropriate candidate to undergo robotic assisted thoracic surgery in the way of right upper lobe extended wedge resection.
Hospital course:
Patient tolerated the procedure well. Patient was extubated in the operating room and recovered in postanesthesia care unit. She was later transferred to the cardiovascular intensive care unit for further postoperative recovery. Her chest tube
was placed to -20 cm of low wall suction with a small intermittent airleak. Patient underwent routine management for postoperative thoracic surgery. On postoperative day #1 there was no air leak visualized in her chest tube was placed to
waterseal. Repeat chest x-ray at 11:00 AM showed a pneumothorax and the patient was placed back on -20 cm of low wall suction. Later on that afternoon repeat chest x-ray revealed lungs fully inflated and the patient suction was decreased to -10
cm.
On postoperative day 2 the patient's home meds were resumed. No pneumothorax was present on morning chest x-ray. Her chest tube was again placed to waterseal repeat chest x-ray at 11:00 AM showed no pneumothorax and she underwent a clamping trial
which unfortunately she failed. Follow-up x-ray revealed the patient had dropped her lung and she was placed back on -10 cm of suction.
On postoperative day 3 chest tube was placed back to waterseal, repeat chest x-ray showed no pneumothorax. Patient was diuresed with Lasix 40 mg IV x 1 due to hyponatremia, and she was continued on waterseal for a full 24 hours.
Postoperative day #4 the patient was again diuresed with Lasix 40 mg IV x 1, hyponatremia and weight gain were improving. Patient underwent additional clamping trial which she did not tolerate. Level again dropped. Patient was placed to Heimlich
valve and repeat chest x-ray showed improvement of pneumothorax but small amount of increasing subcu emphysema. Abdominal binder was placed and repeat chest x-ray at 1900 showed subcutaneous emphysema was stable.
Postoperative day #5 morning chest x-ray again revealed a fully inflated lung and stable subcutaneous emphysema. The patient was tolerating her chest tube being placed to Heimlich valve. She underwent 1 more round of IV diuresis. Discussion was
had with attending physician, and she was medically cleared to be discharged to home on postoperative day #5.
Patient was instructed to represent to [facility] to undergo chest x-ray and possible chest tube removal in the cardiothoracic surgery office on , 02/23/2024.
Home medication changes:
See below
Discharge Plan
-
Patient Disposition: Home (Routine Discharge)
Discharge Diagnosis/Procedures: RUL wedge resection
Condition: Good
Diet: Low Fat, Low Cholesterol and Low Sodium
Activity: No strenuous activity
Driving Restrictions: Not until seen by your Dr
Bathing Restrictions: OK to Shower
Blood Work: Chest X Ray to be done on 02/23/24 to evaluate for possible chest tube removal. Please schedule patient to be seen in the office on 02/23/24, and have chest x ray done prior to presenting to the office to be seen by Dr. Houston.
Other Services: Cardiac Rehab
Specialty Instructions: Weigh Daily- Call MD for wt gain/loss 3 lbs overnight/5 lbs in 1 week
Referrals:
CT Transitional Care Nurse [Outside] (The Cardiothoracic Transitional Care Nurse will call you to set up a visit in 1-2 days.)
Najma Buckner MD [Family Provider] -
Oumar Houston MD [Active] - 03/12/24 1:45 pm
Additional Discharge Medication Instructions: Please pay attention to the following medication changes:
Take Acetaminophen 650 mg Q4H PRN for mild pain/fevers
Take Cyclobenzaprine 5 mg (1/2 10 mg tab) Q8H PRN for incisional pain/muscle spasm
Take Oxycodone 5 mg Q6H PRN for moderate to severe pain
Chest X Ray to be done on 02/23/24 to evaluate for possible chest tube removal. Please schedule patient to be seen in the office on 02/23/24, and have chest x ray done prior to presenting to the office to be seen by Dr. Houston.
Prescriptions:
New
acetaminophen 325 mg Tablet
650 mg PO Q4HPRN PRN (Reason: mild pain,headache,temp >101F ) Qty: 0 0RF
cyclobenzaprine 10 mg Tablet
5 mg PO Q8HPRN PRN (Reason: muscle spasm) Qty: 30 0RF
oxycodone 5 mg Tablet
5 mg PO Q6HPRN PRN (Reason: moderte-severe pain) Qty: 30 0RF
Rx Instructions:
Ongoing pain control. Attending Dr. Oumar Houston MD.
Continued
Rinvoq 15 MG tablet extended release 24 hr
15 mg PO DAILY
amlodipine 5 MG tablet
5 mg PO HS
prednisone 1 mg Tablet
1 mg PO DAILY
ipratropium bromide 42 mcg (0.06 %) [place],Non-Aerosol
2 spray INTRANASAL DAILYPRN PRN (Reason: nasal congestion)
famotidine [Pepcid] 20 mg Tablet
20 mg PO BID
albuterol sulfate 90 mcg/actuation Hfa Aerosol Inhaler
2 puff INHALATION Q6H PRN (Reason: SOB)
metoprolol succinate [Toprol XL] 50 mg tablet extended release 24 hr
50 mg PO HS
aspirin 81 mg Tablet,Delayed Release (Dr/Ec)
81 mg PO DAILY
pantoprazole [Protonix] 20 mg tablet,delayed release (DR/EC)
20 mg PO DAILY
Discharge Orders:
Discharge Patient (As Directed); Ordered 02/20/24
Ordered By: Brandi Escalante
Care Plan Goals
Care Plan Goals:
Problem: Readiness for enhanced knowledge related to diagnosis and treatment plan
Goal: Understand your diagnosis and treatment plan needs, including medications if applicable.
Instructions: Know your diagnosis, underlying causes and treatment plan options, including medications if applicable. Consult with your health care team to learn about your diagnosis and treatment plan, including medications if applicable.
Discharge Date and Time
Print Language: UKRAINIAN
--- NOTE | 2024-02-20 08:30 | W.[place]-PDMP ---
[place]-PD[place]
-
Checked the [place]- Pres[place] Drug Monitoring Program website, no red flags identified; safe to proceed with prescription.
[2024-02-20 09:29] VITALS: BP 117/79
--- NOTE | 2024-02-20 09:30 | PTCARENOTE ---
Resumed care of patient. Walking rounds completed with previous RN. Pt assessed while she was sitting in the chair. Pt alert and oriented x4. pt rates right chest/back pain 4/10. Denies nausea and shortness of breath. OSBORNE with equal strength
throughout. NSR on tele with rates in the 90s. BP 117/79. Bilateral radial and DP pulses palpable. No edema noted. POX 93% Lungs diminished R>L. no cough noted. IS 1250. Abdomen soft, nontender. +BS. Voiding independently. Right lateral chest/back
incisions/puncture sites approximated and CDI. Chest tube to heimlich valve draining straw fluid. Small amount of crepitus to right back. Left AC PIV intact. See MAR for medication administration. see worklist for complete nursing assessment. Plan
of care reviewed and patient in agreement.
[2024-02-20] MEDS: ROXICODONE 5 MG PO (09:50)
[2024-02-20] MEDS: NEURONTIN 100 MG PO (09:50)
[2024-02-20] MEDS: LASIX 40 MG IV (09:50)
[2024-02-20] MEDS: KCL 10 MEQ PO (09:50)
[2024-02-20] MEDS: ASPIR LOW (ENTERIC COATED) 81 MG PO (09:50)
[2024-02-20] MEDS: DELTASONE 1 MG PO (09:50)
[2024-02-20] MEDS: HEPARIN 5000 UNITS SC (09:51)
[2024-02-20] MEDS: SENOKOT PO (09:51)
[2024-02-20] MEDS: MIRALAX PO (09:51)
[2024-02-20] MEDS: LIDOCAINE 4% PATCH TOPICAL (09:51)
[2024-02-20 11:49] VITALS: BP 117/79
--- NOTE | 2024-02-20 11:51 | PTCARENOTE ---
Discharge order received. Discharge instructions reviewed with patient, states understanding. All questions answered. PIV d/c.
== END 2024-02-20 12:34 | disposition home or self-care (01) | DRG 164 ==
LOC: CVICU 07:28
PROVIDERS: Nurse Practitioner; ADMITTING PHYSICIAN Thoracic Surgery (Cardiothoracic Vascular Surgery); FAMILY PHYSICIAN Internal Medicine; OTHER PHYSICIAN Internal Medicine Cardiovascular Disease
PROC: 0BTC4ZZ Resection of Right Upper Lung Lobe, Percutaneous Endoscopic Approach (ICD-10-PCS; 2024-02-15)
PROC: 07T74ZZ Resection of Thorax Lymphatic, Percutaneous Endoscopic Approach (ICD-10-PCS; 2024-02-15)
DX: C34.11 Malignant neoplasm of upper lobe, right bronchus or lung (principal); E87.1 Hypo-osmolality and hyponatremia; J95.811 Postprocedural pneumothorax; T79.7XXA Traumatic subcutaneous emphysema, initial encounter; J98.11 Atelectasis; E78.5 Hyperlipidemia, unspecified; I10 Essential (primary) hypertension; F32.A Depression, unspecified; F41.9 Anxiety disorder, unspecified; J43.9 Emphysema, unspecified; G47.33 Obstructive sleep apnea (adult) (pediatric); D64.9 Anemia, unspecified; Y84.8 Other medical procedures as the cause of abnormal reaction of the patient, or of later complication, without mention of misadventure at the time of the procedure; Z72.0 Tobacco use; Z79.52 Long term (current) use of systemic steroids; Z79.82 Long term (current) use of aspirin; Z79.899 Other long term (current) drug therapy; Z86.16 Personal history of COVID-19
CPT/HCPCS: 88305; 88309; 88332; 36415; 71045; 80048; 80053; 81003; 81015; 82248; 83036; 83735; 85025; 85027; 85610; 85730; 86850; 86900; 86901; 86920; 87070; 87147; 88329; 88331; 93005; 93880

== ENCOUNTER → 2024-02-23 09:57 | Outpatient (REF) | payer MEDICARE, OTHER, SELFPAY | LOC: RAD 09:57 | PROVIDERS: ATTENDING PHYSICIAN Nurse Practitioner | DX: J93.0 Spontaneous tension pneumothorax (principal) | CPT/HCPCS: 71046 ==

== ENCOUNTER → 2024-02-27 13:39 | Outpatient (REF) | payer MEDICARE, OTHER, SELFPAY | LOC: RAD 13:39 | PROVIDERS: ATTENDING PHYSICIAN Thoracic Surgery (Cardiothoracic Vascular Surgery) | DX: Z98.890 Other specified postprocedural states (principal) | CPT/HCPCS: 71046 ==

== ENCOUNTER → 2024-05-09 13:02 | Outpatient (REF) | payer MEDICARE, OTHER, SELFPAY | LOC: RAD 13:02 | PROVIDERS: ATTENDING PHYSICIAN Internal Medicine Critical Care Medicine; FAMILY PHYSICIAN Internal Medicine | DX: C34.91 Malignant neoplasm of unspecified part of right bronchus or lung (principal) | CPT/HCPCS: 71260; Q9967 ==

== ENCOUNTER → 2024-07-13 10:16 | Outpatient (REF) | payer MEDICARE, OTHER, SELFPAY | LOC: HWRAD 10:16 | PROVIDERS: ATTENDING PHYSICIAN Internal Medicine Critical Care Medicine; FAMILY PHYSICIAN Hospitalist | DX: R91.1 Solitary pulmonary nodule (principal) | CPT/HCPCS: 71250 ==

== ENCOUNTER 2024-08-03 06:38 | Day surgery (SDC) | payer MEDICARE, OTHER, SELFPAY | END 2024-08-03 11:56 | disposition home or self-care (01) | LOC: GI 06:38 | PROVIDERS: ATTENDING PHYSICIAN Internal Medicine Gastroenterology | DX: Z12.11 Encounter for screening for malignant neoplasm of colon (principal); K22.2 Esophageal obstruction; K44.9 Diaphragmatic hernia without obstruction or gangrene; K57.30 Diverticulosis of large intestine without perforation or abscess without bleeding; K64.8 Other hemorrhoids; K29.70 Gastritis, unspecified, without bleeding; D12.5 Benign neoplasm of sigmoid colon; K22.9 Disease of esophagus, unspecified; K62.1 Rectal polyp; Z86.0100 Personal history of colon polyps, unspecified | CPT/HCPCS: 45385; 43239; 88305; 88342 ==

== ENCOUNTER 2024-09-04 17:26 | Emergency (ER) | payer MEDICARE, OTHER, SELFPAY ==
[2024-09-04 17:28] VITALS: BP 142/87
--- NOTE | 2024-09-04 18:15 | ED.GENMED ---
History of Present Illness
<Tabatha Arcos MD, Resident - Last Filed: 09/04/24 23:02>
General
Chief Complaint: Abnormal Lab Value
Source: patient
Exam Limitations: none
Time Seen by Provider: 09/04/24 18:13
Nursing documentation reviewed up to this point in time: agreed with
History of Present Illness
History of Present Illness:
Ms. Isabela Main is 69yoF with a PMH notable for lung adenocarcinoma (s/p wedge resection with negative margins 01/2025), COPD, AAA, MARISSA, GERD, hiatal hernia, Schatzki esophageal ring, and rheumatoid arthritis (on Rinvoq), who is presenting from
her PCPs office for an elevated D-dimer (greater than 20) as well as chest pain with inspiration for 2 days and shortness of breath.
Her chest pain started on 2 days ago after a large barbecue dinner. She has a history of heartburn due to a hiatal hernia and Schatzki ring, she attributed the chest pain to heartburn.
She was diagnosed with lung adenocarcinoma in December 2023 and received a wedge resection with negative margins in January 2024. She also had a basal cell carcinoma on her face with no metastasis. She had colon biopsies 3 weeks ago in late July
and her colon polyps were benign.
She drove for 7 hours 2 days ago. She has not had surgery in the last 4 weeks.
She denies having had a blood clot before. Her family history is notable for a fatal myocardial infarction in her father at age 44 and structural heart disease in her mother.
She denies having bleeding disorders, hemarthrosis, intracranial bleeds, GI bleeds, hematemesis, hematochezia, or hematuria.
Past History
<Tabatha Arcos MD, Resident - Last Filed: 09/04/24 23:02>
Past History
ED Past Medical History: HTN and Other; Negative IDDM
ED Past Surgical History: Other (noncontributory )
Social History
Tobacco: Smoker
Alcohol: None
Drug: None and Former user
Living: with family
Employment: Employed
Family History
Family History: Negative Sudden
Review of Systems
<Tabatha Arcos MD, Resident - Last Filed: 09/04/24 23:02>
Review of Systems
All Other Systems: ROS reviewed and negative except as documented in HPI and ROS
Constitutional: Reports no symptoms
Cardiac: Reports chest pain (Mild pleuritic chest pain)
ABD/GI: Reports pain (Dyspepsia)
Hematologic/Lymphatic: Reports no symptoms
Phy Exam
<Tabatha Arcos MD, Resident - Last Filed: 09/04/24 23:02>
Physical Exam
Physical Exam:
General: In no apparent distress
Heart: Regular rate and rhythm
Lungs: Clear to auscultation bilaterally
Extremities: No calf or popliteal tenderness to palpation; no skin discoloration; able to flex and plantarflex freely
GI: Normal bowel sounds no tenderness to palpation
Course
<Tabatha Arcos MD, Resident - Last Filed: 09/04/24 23:02>
Orders/Labs/Results
Orders:
Orders
09/04/24 17:32
ECG [Electrocardiogram (*1)] Urgent
Reason for Study: Chest Pain
EKG- Treatment ONCE
09/04/24 17:[address] [CT Chest PE Study] Urgent
Comment:
Reason For Exam: CP/SOB/ELEVATED DIMER
09/04/24 17:42
Comprehensive Metabolic Panel Urgent
Troponin I Urgent
09/04/24 21:42
Legs, Bilateral US [US Periph Venous LOWER Ext Sung] Stat
Comment:
Reason For Exam: High D-dimer>20, PMH of cancer, recent 7hr drive
09/04/24 17:42
Vital Signs
Initial and Last Documented VS:
Initial Vital Signs
Temp Pulse Resp BP Pulse Ox
98.4 F 100 20 142/87 97
09/04/24 17:28 09/04/24 17:28 09/04/24 17:28 09/04/24 17:28 09/04/24 17:28
Last Documented Vital Signs
Temp Pulse Resp BP Pulse Ox
98.4 F 90 19 144/89 95
09/04/24 17:28 09/04/24 21:45 09/04/24 21:45 09/04/24 21:00 09/04/24 21:45
<Sami Marlow MD - Last Filed: 09/04/24 22:52>
Orders/Labs/Results
Orders:
Orders
09/04/24 17:32
ECG [Electrocardiogram (*1)] Urgent
Reason for Study: Chest Pain
EKG- Treatment ONCE
09/04/24 17:[address] [CT Chest PE Study] Urgent
Comment:
Reason For Exam: CP/SOB/ELEVATED DIMER
09/04/24 17:42
Comprehensive Metabolic Panel Urgent
Troponin I Urgent
09/04/24 21:42
Legs, Bilateral US [US Periph Venous LOWER Ext Sung] Stat
Comment:
Reason For Exam: High D-dimer>20, PMH of cancer, recent 7hr drive
09/04/24 17:42
Vital Signs
Initial and Last Documented VS:
Initial Vital Signs
Temp Pulse Resp BP Pulse Ox
98.4 F 100 20 142/87 97
09/04/24 17:28 09/04/24 17:28 09/04/24 17:28 09/04/24 17:28 09/04/24 17:28
Last Documented Vital Signs
Temp Pulse Resp BP Pulse Ox
98.4 F 90 19 144/89 95
09/04/24 17:28 09/04/24 21:45 09/04/24 21:45 09/04/24 21:00 09/04/24 21:45
<Tabatha Arcos MD, Resident - Last Filed: 09/04/24 23:02>
MDM/Problems Addressed
Differential Diagnosis Includes:
Pulmonary embolism
DVT
ACS
GERD
MDM/Problems Addressed:
CT PE negative for pulmonary embolism
B/l vascular lower extremity ultrasound negative for DVT
ACS is less likely given nonelevated troponin I
Doxycycline 100 mg PO for possible pneumonitis
Chronic conditions affecting care: COPD, Cancer (lung cancer status post wedge resection with negative margins) and Other (Rheumatoid arthritis on Rinvoq (which can increase the risk of blood clots))
<Tabatha Arcos MD, Resident - Last Filed: 09/04/24 23:02>
*Pulse Oximetry
SaO2: 97
Oxygen Mode of Delivery: Room air
Patient hypoxic: no
*Critical Care Note
Total Time (30-74mins, 75-104mins- exclusive of procedures): Not Applicable
ED Attending Note
<Tabatha Arcos MD, Resident - Last Filed: 09/04/24 23:02>
-
Portions of this chart may have been created with voice recognition software.� Occasional wrong word or��sound alike� substitutions may have occurred due to the inherent limitations of voice recognition software.
<Sami Marlow MD - Last Filed: 09/04/24 22:52>
ED Attending Note
Patient seen and examined by attending physician: Yes
I performed the substantive portion of visit, reviewed & personally made and approve the management plan that is documented in note by myself or MIKA.: Yes
ED Attending Note:
Patient complaining of some substernal pleuritic chest pain. Hurts to take a deep breath. Symptoms for days. Had outpatient blood work which showed a very positive D-dimer. Denies abdominal pain back pain fever cough or other complaints.
On exam patient is nontoxic in no distress. Stable vital signs. Pulse ox is good. No respiratory distress. Regular rate and rhythm. Extremities are warm and dry and unremarkable. No swelling to the upper or lower extremities
CT scan shows a lingular pneumonitis versus early tumor. No pulmonary emboli. Will do leg ultrasounds for completeness. Nothing else to support other venous thrombolic embolic issue. No upper extremity swelling no abdominal pain no facial or
neck swelling. If ultrasounds are negative will place on doxycycline to follow-up. Ultrasound positive would warrant anticoagulation
2250... Patient is remained stable and nontoxic. In no distress. Will cover for a pneumonitis with doxycycline 100 mg p.o. twice daily x 10 days. Close follow-up with her bicycle repairer. Will likely need repeat radiologic testing to check
clearance. Nothing clinically or by radiologic testing to support any DVT or thrombus issue. No indication for anticoagulation. Patient was given a copy of her CT report
Discharge Plan
Departure
Patient Disposition: Home (Routine Discharge)
Date of Disposition: 09/04/24
Time of Disposition: 22:54
Patient with high blood pressure during this ER visit?: Yes
Condition: Good
Discharge Problem:
D-dimer, elevated
Instructions: Pneumonitis, Pleurisy
Prescriptions:
New
doxycycline hyclate 100 mg capsule
100 mg PO BID Qty: 20 0RF
No Action
Rinvoq 15 MG tablet extended release 24 hr
15 mg PO DAILY
amlodipine 5 MG tablet
5 mg PO HS
prednisone 1 mg Tablet
1 mg PO DAILY
famotidine [Pepcid] 20 mg Tablet
20 mg PO BID
albuterol sulfate 90 mcg/actuation Hfa Aerosol Inhaler
2 puff INHALATION R Q6HPRN PRN (Reason: SOB)
metoprolol succinate [Toprol XL] 50 mg tablet extended release 24 hr
50 mg PO HS
aspirin 81 mg Tablet,Delayed Release (Dr/Ec)
81 mg PO DAILY
pantoprazole [Protonix] 20 mg tablet,delayed release (DR/EC)
20 mg PO DAILY
ibuprofen 200 mg Tablet
600 mg PO DAILYPRN PRN (Reason: mild pain)
ipratropium bromide 42 mcg (0.06 %) spray,non-aerosol
2 spray INTRANASAL DAILYPRN PRN (Reason: nasal congestion)
magnesium glycinate
250 mg PO NOON
vitamin D3-vitamin K2
1 tab PO NOON
Patient Comments:
09/04/2024, 200 mcg of vitamin K2 and 250 mcg of vitamin D3 per pt.
Referrals:
Sarah Javier MD [Family Provider, Internal Medicine]
Activity Restrictions/Additional Instructions:
Dear Ms. Main, you came to the ED due to a elevated D-dimer and chest pain from your PCP's office. Your CAT scan for pulmonary embolisms was negative. Your leg ultrasound for deep venous thromboembolisms was also negative. Your chest pain may
be due to pneumonitis (lung inflammation). We are giving you a prescription of the antibiotic doxycycline 100 mg 2 times a day for 10 days.
Please follow-up with your bicycle repairer regarding your pleuritic chest pain. Please return if you have chest pain, shortness of breath, DVT, or pain in your calves.
Interventions
Interventions:
*Risk Screen - Suicide Last Done: 09/04/24 17:28
*Neglect/Abuse Screening Last Done: 09/04/24 17:28
*ED- Fall Risk Assessment Last Done: 09/04/24 22:08
Discharge Date and Time
Print Language: IRISH
[2024-09-04 18:16] LABS: Troponin I < 0.012 ng/ml
[2024-09-04 18:28] LABS: ALT (SGPT) 28 U/L (0-35); AST (SGOT) 28 U/L (14-36); Albumin 4.2 g/dl (3.5-5.0); Alkaline Phosphatase 60 U/L (38-126); Blood Urea Nitrogen 13 mg/dl (7-17); Calcium 8.9 mg/dl (8.4-10.2); Carbon Dioxide 25 mmol/L (22-30); Chloride 106 mmol/L (98-107); Glucose 93 mg/dl (70-99); Potassium 3.5 mmol/L (3.5-5.1); Sodium 136 mmol/L (135-145); Total Protein 6.6 g/dl (6.3-8.2); eGFR > 60.00
[2024-09-04 19:00] VITALS: BP 151/102
[2024-09-04 19:01] VITALS: BP 162/91
[2024-09-04 20:02] VITALS: BP 155/102
[2024-09-04 20:47] VITALS: BP 173/87
[2024-09-04 21:00] VITALS: BP 144/89
[2024-09-04] MEDS: VIBRAMYCIN 100 MG PO (23:08)
== END 2024-09-04 23:11 | disposition home or self-care (01) ==
LOC: EMR 17:26
PROVIDERS: Emergency Medicine; EMERGENCY PHYSICIAN Emergency Medicine; FAMILY PHYSICIAN Hospitalist
DX: R79.1 Abnormal coagulation profile (principal); R07.89 Other chest pain; J44.9 Chronic obstructive pulmonary disease, unspecified; C34.11 Malignant neoplasm of upper lobe, right bronchus or lung; R07.81 Pleurodynia; I10 Essential (primary) hypertension; F17.200 Nicotine dependence, unspecified, uncomplicated; M06.9 Rheumatoid arthritis, unspecified; Z86.0100 Personal history of colon polyps, unspecified; Z90.2 Acquired absence of lung [part of]; Z79.621 Long term (current) use of calcineurin inhibitor; G47.33 Obstructive sleep apnea (adult) (pediatric)
CPT/HCPCS: 99285; 36415; 71046; 71275; 76642; 77062; 77066; 80053; 84484; 85025; 85379; 93005; 93970; Q9967

== ENCOUNTER → 2024-11-13 09:31 | Outpatient (REF) | payer MEDICARE, OTHER, SELFPAY | LOC: RAD 09:31 | PROVIDERS: ATTENDING PHYSICIAN Internal Medicine Rheumatology; FAMILY PHYSICIAN Internal Medicine | DX: M81.0 Age-related osteoporosis without current pathological fracture (principal); Z13.820 Encounter for screening for osteoporosis | CPT/HCPCS: 77080 ==